=== PATIENT | female | born 1975 | race American Indian/Alaskan Native ===

== ENCOUNTER 2020-11-20 08:21 | Day surgery (SDC) | payer MEDICARE ==
[2020-11-14 12:36] LABS: Basophils % (Auto) 0.6 % (0.0-1.8); Eosinophils % (Auto) 0.6 % (0.0-4.3); Hematocrit 38.9 % (30.3-42.9); Hemoglobin 13.2 gm/dl (10.1-14.3); Lymphocytes # (Auto) 1.1 K/mm3 (1.2-5.4); Lymphocytes % (Auto) 43.4 % (13.4-35.0); Mean Corpuscular HGB Conc 34 % (30-34); Mean Corpuscular Volume 88 fl (79-97); Monocytes # (Auto) 0.4 K/mm3 (0.0-0.8); Monocytes % (Auto) 15.8 % (0.0-7.3); Platelet Count 268 K/mm3 (140-440); Red Blood Count 4.42 M/mm3 (3.65-5.03); Red Cell Distribution Width 13.2 % (13.2-15.2)
[2020-11-14 12:43] LABS: BUN/Creatinine Ratio 16; Blood Urea Nitrogen 14 mg/dL (7-17); Calcium 9.6 mg/dL (8.4-10.2); Hemolysis Index 2
--- NOTE | 2020-11-14 13:31 | Anesthesia Consultation ---
Anesthesia Consult and Med Hx Date of service: 11/20/20 - Airway Anesthetic Teeth Evaluation: Good, Chipped (multiple) ROM Head & Neck: Adequate Mental/Hyoid Distance: Adequate Mallampati Class: Class II Intubation Access Assessment: Probably Good - Pulmonary Exam CTA: Yes - Cardiac Exam Cardiac Exam: RRR - Pre-Operative Health Status ASA Pre-Surgery Classification: ASA3 Proposed Anesthetic Plan: General Nerve Block: TAP - Pulmonary Hx Smoking: No Hx Asthma: Yes (hx childhood asthma; no recent inhaler use) Hx Respiratory Symptoms: No Hx Sleep Apnea: No (CAITLYN PRE SCREEN LOW RISK) - Cardiovascular System Hx Hypertension: No Hx Heart Attack/AMI: No Hx Percutaneous Transluminal Coronary Angioplasty (PTCA): No Hx Cardia Arrhythmia: No - Central Nervous System Hx Seizures: Yes (last seizure 2-4months ago; takes keppra and gabapentin) 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
--- NOTE | 2020-11-20 07:41 | Short Stay Summary ---
Short Stay Documentation Date of service: 11/20/20 Narrative H&P: 45-year-old with a history of symptomatic uterine fibroids. The patient has a history of worsening menorrhagia and dysmenorrhea. Pelvic ultrasound demonstrated an enlarged uterus of 12.3 cm with a dominant leiomyoma of 2.5 cm. Patient has failed medical management and has elected to undergo definitive surgical management. - History Principal diagnosis: Symptomatic uterine fibroids Past Medical History: hyperlipidemia, seizures, other (Head injury; renal calculi; transient CVA; asthma; uterine fibroids) Past Surgical History: Other (Back surgery; brain surgery; gastric bypass) Social history: no significant social history - Allergies and Medications Current Medications: Allergies No Known Allergies Allergy (Verified 10/04/13 21:21) Home Medications Medication Instructions Recorded Confirmed Last Taken Type Ferrous Sulfate [Iron Supplement] 325 mg PO DAILY 07/11/13 10/04/13 10/04/13 08:00 History Iron,Carb/Vit C/Vit B12/Folic 1 each PO TID #90 tablet 07/12/13 10/04/13 10/04/13 08:00 Rx [Iron 100 Plus Tablet] Biotin 1 cap PO DAILY 11/13/20 11/13/20 Unknown History Gabapentin [Neurontin] 600 mg PO TID 11/13/20 11/13/20 Unknown History Probiotic with Prebiotic Cap 1 cap PO DAILY 11/13/20 11/13/20 Unknown History Vitamin B-12 1 dose PO DAILY 11/13/20 11/13/20 Unknown History Vitamin D3 1 cap PO DAILY 11/13/20 11/13/20 Unknown History levETIRAcetam [Keppra] 500 mg PO TID 11/13/20 11/13/20 Unknown History Active Medications Acetaminophen (Acetaminophen 500 Mg Tab) 1,000 mg PO PREOP WILEY Celecoxib (Celecoxib 200 Mg Cap) 200 mg PO PREOP NR Stop: 11/20/20 23:01 Fentanyl (Fentanyl 100 Mcg/2 Ml Inj) 100 mcg IV ONCE PRN PRN Reason: sedation for nerve block Lactated Ringer's (Lactated Ringers) 1,000 mls @ 100 mls/hr IV DIRECT WILEY Stop: 11/20/20 23:59 Midazolam HCl (Midazolam 2 Mg/2 Ml Inj) 2 mg IV PREOP NR Stop: 11/20/20 23:01 Scopolamine (Scopolamine Transdermal Patch 72 Hr) 1 each TD PREOP NR Stop: 11/20/20 23:01 - Physical exam General appearance: no acute distress Integumentary: no rash HEENT: Atraumatic Lungs: Clear to auscultation Breasts: deferred Heart: Regular rate Gastrointestinal: normal Female Genitourinary: deferred Rectal Exam: deferred - Brief post op/procedure progress note Date of procedure: 11/20/20 Pre-op diagnosis: Symptomatic uterine fibroids Post-op diagnosis: same Procedure: Robotic hysterectomy and bilateral salpingectomy Anesthesia: GETA Surgeon: FELY KONG Estimated blood loss: other (200 mL) Pathology: list (Uterus, cervix, bilateral tubes) Specimen disposition: to lab Condition: stable - Hospital course Hospital course: Patient was admitted the day of surgery underwent a robotic hysterectomy and bilateral salpingectomy. Please see operative note for details of surgery. Postoperative course was uneventful. - Disposition Condition at discharge: Good Disposition: DC-01 TO HOME OR SELFCARE Short Stay Discharge Plan Activity: other (Pelvic rest for 6 weeks;) Additional Instructions: No tub baths for 4 weeks patient may shower Schedule follow-up with Dr. Kong in 4 weeks
[~2020-11-20 08:21] MED LIST: ACETAMINOPHEN 500 MG TAB PO SCH; CELECOXIB 200 MG CAP PO NR; LACTATED RINGERS 1,000 ML IV SCH; MIDAZOLAM 2 MG/2 ML INJ IV NR; SCOPOLAMINE TRANSDERMAL PATCH 72 HR TD NR; ceFAZolin/Water 2 GM/20 ML 2 GM/20 ML SYRINGE IV NR; fentaNYL 100 MCG/2 ML INJ IV PRN
[2020-11-20] MEDS ORDERED: ONDANSETRON 4 MG/2 ML INJ IV PRN (08:59)
[2020-11-20] MEDS ORDERED: HYDROmorphone 1 MG/1 ML INJ IV PRN (08:59)
--- NOTE | 2020-11-20 08:59 | Anesthesia Day of Surgery ---
Anesthesia Day of Surgery - Day of Surgery Patient Examined: Yes Patient H&P Reviewed: Yes Patient is NPO: Yes
[2020-11-20] MEDS ORDERED: levETIRAcetam 500 MG TAB PO NR (09:00)
[2020-11-20] MEDS ORDERED: dexAMETHasone 4 MG/ML VIAL ONE (09:04)
[2020-11-20] MEDS ORDERED: BUPIVACAINE/PF (0.25%) 2.5 MG/ML 30 ML VIAL INFILTRATI ONE (09:04)
[2020-11-20] MEDS ORDERED: LIDOCAINE (1%) 10 MG/1 ML VIAL 20 ML MDV ONE (09:08)
[2020-11-20] MEDS ORDERED: ACETAMINOPHEN 325 MG/10.15 ML ORAL LIQD UNIT DOSE PO NR (09:15)
[2020-11-20] MEDS ORDERED: ACETAMINOPHEN 325 MG/10.15 ML ORAL LIQD UNIT DOSE ONE (09:19)
[2020-11-20] MEDS ORDERED: BACTERIOSTATIC SODIUM CHLORIDE 0.9% 30 ML VIAL INFILTRATI ONE (09:24)
[2020-11-20] MEDS ORDERED: GABAPENTIN 300 MG CAP PO NR (10:00)
[2020-11-20] MEDS ORDERED: LIDOCAINE MPF (2%) 20 MG/1 ML VIAL 5 ML ONE (10:00)
[2020-11-20] MEDS ORDERED: dexAMETHasone 20 MG/5 ML VIAL ONE (10:01)
[2020-11-20] MEDS ORDERED: propofoL 200 MG/20 ML VIAL IV ONE (10:01)
[2020-11-20] MEDS ORDERED: ROCURONIUM 50 MG/5 ML INJ IV ONE (10:01)
[2020-11-20] MEDS ORDERED: HYDROmorphone 1 MG/1 ML INJ ONE (10:01)
[2020-11-20] MEDS ORDERED: fentaNYL 100 MCG/2 ML INJ ONE (10:01)
[2020-11-20] MEDS ORDERED: ONDANSETRON 4 MG/2 ML INJ ONE (10:01)
[2020-11-20] MEDS ORDERED: GLYCOPYRROLATE 0.4 MG/2 ML INJ ONE (10:01)
[2020-11-20] MEDS ORDERED: NEOMY 40 MG/POLYMYXIN B 200,000 UNITS/ML (GU) AMPULE IR ONE ×2 (10:05→11:55)
[2020-11-20] MEDS ORDERED: SODIUM CHLORIDE 0.9% IRR 1,500 ML BOTTLE IR ONE (11:56)
[2020-11-20] MEDS ORDERED: SODIUM CHLORIDE 0.9% IRRIG SOLN 2000 ML IR ONE (12:21)
[2020-11-20] MEDS ORDERED: SUGAMMADEX SODIUM 200 MG/2 ML VIAL IV ONE (12:49)
--- NOTE | 2020-11-20 12:50 | Operative Report ---
Operative Report Operative Report: Date of surgery: November 20, 2020 Preoperative diagnoses: Symptomatic uterine fibroid Postoperative diagnoses: Same as above Procedure: Robotic hysterectomy; bilateral salpingectomy; lysis of adhesions Surgeon: Kellie Lane M.D. Crystal Gazer: Mariama Mckinney Anesthesia: Gen. endotracheal anesthesia Estimated blood loss: 200 mL Pathology: Uterus, cervix, bilateral tubes Indication: 45-year-old -0-1-6 with a history of symptomatic uterine fibroids. The patient has failed medical management elected to undergo definitive surgical management. Procedure: The patient was taken to the operating room and given general endotracheal anesthesia without complication after a time out was performed confirming the surgery and identity of the patient. She was prepped and draped in a normal sterile fashion. A bivalve speculum was placed in the patient's vagina and a single-tooth tenaculum placed on the anterior lip of the cervix. The uterus was sounded with the uterine sound. A stay suture with 0-vicryl was placed at 12 o'clock on the anterior cervix. A [employer] uterine manipulator was placed in the bivalve speculum was then removed. A warm laparotomy sponge was placed in the vagina. Attention was then turned to the patient's abdomen where a 12millimeter supra umbilical skin incision was then made. A Veress needle was placed and peritoneal entry was verified water-filled syringe. Insufflation of the peritoneal cavity was performed with CO2 gas. The 12 mm trocar was then placed under direct visualization. An additional 8 mm robotic trocar was placed on the patient's left and right lateral side just opposite of the supraumbilical trocar. An additional 5 mm right lateral trocar was then placed as the accessory port. The supraumbilical 12 mm trocar site was closed with the Lobo Fraga device and 0-vicryl suture. The patient was then placed in steep Trendelenburg. The [employer] robot was then engaged. A fenestrated forcep was placed in arm 2 and a vessel sealer was placed in arm 1. General survey revealed an enlarged fibroid uterus. There was evidence of an omental adhesion to the anterior abdominal wall. The anterior aspect of the uterus was densely adherent anteriorly. The surgeon then transferred to the surgical console. The omental adhesion was first addressed with the vessel sealer. The vessel sealer was used to coagulate and transect the omental adhesions to the anterior abdominal wall. The mesosalpinx was then isolated on the right. The vessel sealer was used to coagulate the mesosalpinx which was then transected. The tube was transected from the ovary. The tubo-ovarian ligament was then coagulated and transected. The round ligament was then coagulated and transected also. The vesicouterine peritoneum was then entered from the patient's right side. The uterine vessels were then coagulated with the vessel sealer. The vessels were then transected . Attention was then turned to the patient's left side where the tubo-ovarian ligament and mesosalpinx were again isolated coagulated and transected. The vesical peritoneum was then entered from the left and joined in the midline. Peritoneum was reflected off of the lower uterine segment. Uterine vessels were then coagulated and then transected. The blood supply to the uterus was adequately contained, a posterior colpotomy was made. The V care ring was visualized. Posterior colpotomy was created with the monopolar scissors. The incision was continued circumferentially until anterior colpotomy was made. The cervix and uterus were amputated from the vaginal cuff. The uterus is bivalved to facilitate delivery through the vagina. The uterus was then removed along with the tubes bilaterally through the vagina and a warm laparotomy sponge was placed and maintain the pneumoperitoneum. The vaginal cuff was then closed in a running fashion with V lock suture. Irrigation of the pelvis was performed. Hemoblast was applied to the incision. The The [employer] robot was undocked. The trocars were removed and the insuffliation was released. The skin was then reapproximated with 4-0 Monocryl. The tissue was sent to pathology which included the cervix, bilateral tubes and uterus. The patient was then successfully extubated. She was then taken to the recovery room in stable condition. All sponge laps and needle counts were correct x2.
[2020-11-20] MEDS ORDERED: ACETAMINOPHEN 500 MG TAB PO ONE (13:30)
[2020-11-20] MEDS: HYDROmorphone 1 MG/1 ML INJ IV PRN ×3 (13:34→14:47)
--- NOTE | 2020-11-20 15:25 | Post Anesthesia Evaluation ---
- Post Anesthesia Evaluation Patient Participated: Yes Airway Patent: Yes Stable Respiratory Function: Yes Nausea/Vomiting: No Temp > 96.8F: Yes Pain Manageable: Yes Adequeate Hydration: Yes Anesthesia Complications: Yes (Left eye corneal abrasion. Patient has LONG stick-on eyelashes) Block Receding Appropriately: Yes Patient on Ventilator: No Other Comments: Will order eye drops and call her tomorrow
[2020-11-20] MEDS ORDERED: FLURBIPROFEN SODIUM OS SCH (16:00)
[2020-11-20 16:47] VITALS: BP 136/67
--- NOTE | 2020-11-22 15:55 | Event Note ---
Date: 11/22/20 (Follow Up) I attempted to call patient at [phone], the number she provided me, regarding her corneal abrasion. Three attempts: [phone] @ 16:56, [phone] @ 11:47 and @ 15:53. No answer. I left her a VM the first time telling her the purpose of my call.
== END 2020-11-20 16:35 | disposition home or self-care (01) ==
LOC: OR 08:21
PROVIDERS: ATTEND Obstetrics & Gynecology
DX: D25.9 Leiomyoma of uterus, unspecified (principal); N92.0 Excessive and frequent menstruation with regular cycle; D47.3 Essential (hemorrhagic) thrombocythemia; G47.30 Sleep apnea, unspecified; F41.9 Anxiety disorder, unspecified; J45.909 Unspecified asthma, uncomplicated; Z79.899 Other long term (current) drug therapy; Z98.890 Other specified postprocedural states
CPT/HCPCS: 36415; 58552; 80048; 84703; 85025; 86850; 86900; 86901; 88307; A4217; J0690; J1100; J1170; J2250; J2405; J2704; J3010; J7120; S2900; U0003; 64450